=== PATIENT | female | born 1990 | race Caucasian/White ===

== ENCOUNTER 2021-04-27 12:47 | Emergency (ER) | payer MEDICAID, OTHER ==
[~2021-04-27] VITALS: Ht 167.6 cm; Wt 63.0 kg
[~2021-04-27 12:47] MED LIST: FAMO20TA8 PO
[2021-04-27] MEDS ORDERED: DIAZEPAM 5 MG TABLET PO ONE (14:30)
[2021-04-27] MEDS ORDERED: LIDOCAINE 5% TRANSDERMAL PATCH TD ONE (14:30)
[2021-04-27] MEDS ORDERED: HYDROCODONE/ACETAMINOPHEN 5-325 MG TABLET PO ONE (14:30)
[2021-04-27 15:11] VITALS: BP 104/67
== END 2021-04-27 15:30 | disposition home or self-care (01) ==
LOC: EMS 12:47
DX: M43.6 Torticollis (principal)
CPT/HCPCS: 99284; Z7502; Z7610